=== PATIENT | male | born 1980 | race Two or more races ===

== ENCOUNTER 2022-04-06 12:21 | Emergency (ER) | payer OTHER ==
[~2022-04-06] VITALS: Ht 177.8 cm; Wt 61.2 kg
[2022-04-06] MEDS ORDERED: CARVEDILOL ER40 MG PO (13:17)
[2022-04-06] MEDS ORDERED: SIMVASTATIN5 MG PO (13:17)
[2022-04-06] MEDS ORDERED: VALSARTAN160 MG PO (13:17)
== END 2022-04-06 19:30 | disposition home or self-care (01) ==
LOC: ER 12:21
DX: S93.401A Sprain of unspecified ligament of right ankle, initial encounter (principal); X58.XXXA Exposure to other specified factors, initial encounter; Y93.9 Activity, unspecified; Y92.9 Unspecified place or not applicable